=== PATIENT | male | born 1980 | race Two or more races ===

== ENCOUNTER 2020-01-18 07:01 | Day surgery (SDC) | payer OTHER ==
[2020-01-18] MEDS ORDERED: SURFAK240 M1 PO (12:52)
[2020-01-18] MEDS ORDERED: ULTRAM50 MG PO (12:53)
== END 2020-01-18 18:00 | disposition home or self-care (01) ==
LOC: CIR.AMB 07:01
PROVIDERS: ATTEND Surgery
DX: I86.1 Scrotal varices (principal); Z20.828 Contact with and (suspected) exposure to other viral communicable diseases